=== PATIENT | female | born 1965 | race Caucasian/White ===

== ENCOUNTER 2018-12-25 15:00 | Emergency (ER) | payer OTHER ==
[~2018-12-25] VITALS: Ht 149.9 cm; Wt 65.7 kg
[2018-12-25 15:02] VITALS: BP 112/76; PULSE 82; RESP 19; Ht 149.9 cm; Wt 65.7 kg
[2018-12-25] MEDS ORDERED: KETOROLAC 30 MG INJ IM STA (15:33)
--- NOTE | 2018-12-25 15:34 | ERD ---
ER Documentation Chief Complaint Chief Complaint on and off headache and shoulder pain x 1 month HPI 53-year-old female, with history of migraines, presents to the emergency department, complaining of 1 month with intermittent episodes of migraine. The pain is described as thyroid, band like radiated, 12/23. The patient [place] with mild improvement of the symptoms. She currently denies blurred vision, no nausea or vomiting, no distal weakness, numbness or tingling. ROS All systems reviewed and are negative except as per history of present illness. Medications Home Meds No Active Prescriptions or Reported Meds Allergies Allergies: Coded Allergies: No Known Allergy (Unverified , 09/18/14) PMhx/Soc History of Surgery: No Anesthesia Reaction: No Hx Neurological Disorder: No Hx Respiratory Disorders: No Hx Cardiac Disorders: No Hx Psychiatric Problems: No Hx Miscellaneous Medical Probl: No Hx Alcohol Use: No Hx Substance Use: No Hx Tobacco Use: No Smoking Status: Never smoker FmHx Family History: diabetes; No coronary disease Physical Exam Vitals Vital Signs Date Temp Pulse Resp B/P (MAP) Pulse Ox O2 O2 Flow FiO2 Time Delivery Rate 12/25/18 98.7 82 19 112/76 100 15:02 (88) Physical Exam Const: No acute distress Head: Atraumatic Eyes: Normal Conjunctiva ENT: Normal External Ears, Nose and Mouth. Neck: Full range of motion. No meningismus. Resp: Clear to auscultation bilaterally Cardio: Regular rate and rhythm, no murmurs Abd: Soft, non tender, non distended. Normal bowel sounds Skin: No petechiae or rashes Back: No midline or flank tenderness Ext: No cyanosis, or edema Neur: Awake and alert Psych: Normal Mood and Affect Procedures/MDM Vital signs stable, Physical exam unremarkable, neurovascular exam intact. Differential diagnosis include but not limited to: Classical migraine, sinusitis, visual corrective problems, side effects of medications, dehydration, electrolyte imbalance, endocrine/autoimmune medical condition, stress, anxiety, tension headache. Low suspicion for meningitis, GRANULATOR tumor, cerebrovascular event. Physical examination and clinical presentation consistent most likely with migraine headache. During the ED course the patient remained stable, no new complaints. The patient received treatment with Toradol IM presenting overall improvement of the symptoms. Results and clinical impression discussed with patient who agrees with management. The patient is stable to be treated outpatient and will be discharged home, some side effects of prescribed medications (headache, rash, nausea, vomiting, diarrhea, drowsiness, habituation, bleeding, hypertension, i nteractions with other medications) were reviewed. Follow up with the primary care provider in the next 48h has been recommended. If symptoms persist, worsen or new symptoms develop, then patient should return to the ED immediately. Instructions explained and given directly by me to the patient with acknowledgment and demonstrated understanding. Disclaimer: Inadvertent spelling and grammatical errors are likely due to EHR/dictation software use and do not reflect on the overall quality of patient care. Also, please note that the electronic time recorded on this note does not necessarily reflect the actual time of the patient encounter. Departure Diagnosis: Primary Impression: Migraine headache Condition: Stable Additional Instructions: Muchas remi por [facility] para mirza servicio. Esperamos que en mirza visita a la peter de emergencia mirza problema medico haya sido solucionado y que se sienta mucho mejor. Para estar seguros que mirza mejoria sigue en proceso, le pedimos el favor de hacer leo wen de seguimiento medico con mirza doctor primario en los proximos 2-4 sigala. Lleve con usted estos documentos y las medicinas recetadas. Si jennifer sintomas empeoran, NO SE ESPERE, por favor regrese a peter de emergencia INMEDIATAMENTE. En gayle que usted no tenga un mdico de atencin primaria: Llame al mdico o clnica comunitaria de referencia que aparece abajo eric las horas de consultorio para hacer leo wen para que le vean. CLINICAS: [facility] [phone] [facility] [phone] [facility] [phone] [facility] [phone] [facility] [phone] [facility]. [phone] JO ANN CALLAWAY MD Dec 25, 2018 15:34
[2018-12-25] MEDS ORDERED: BUTA1CAP38 PO (16:14)
[2018-12-25] MEDS ORDERED: ONDA4TAB8 PO (16:15)
== END 2018-12-25 16:26 | disposition home or self-care (01) ==
LOC: FTE 15:00
DX: G43.909 Migraine, unspecified, not intractable, without status migrainosus (principal)
CPT/HCPCS: 96372; J1885; Z7502